=== PATIENT | male | born 1935 | race Caucasian/White ===

== ENCOUNTER 2018-07-12 06:45 | Inpatient (IN) | payer OTHER ==
--- NOTE | 2018-07-12 07:20 | PDOC ---
History of Present Illness - General Chief Complaint: Chest Pain Stated Complaint: CHEST PAIN Time Seen by Provider: 07/12/18 07:03 History Source: Patient, Spouse Exam Limitations: Language Barrier - History of Present Illness Initial Comments: 07/12/18 07:33 *Bengali speaking Pt is a n 83yo M with PMH of CAD s/p Bypass, AICD, HTN, BPH presenting to ED with complaints of dry cough x4 days. Pt states that he has been coughing so much that he started to have pain in his lower chest. He denies fever, chills, productive cough, recent travel, leg swelling, sick contacts. He also endorses exertional chest pain that radiates to the shoulders bilaterally and dyspnea on exertion which is alleviated with rest. He denies syncope, palpitations, abdominal pain, n/v/d, urinary symptoms, back pain, neck pain, headache. He states that a few of his medications have been discontinued. He follows up with [facility] and states his last appointment with cardiology was 01/2018 but he was unable to get an echo. Last stress test was over 2 years ago. PMD: Brittany Cards: Phyllis PMH: see hpi PSH: see hpi Meds: see med rec Allergies: nkda Past History - Past Medical History Allergies/Adverse Reactions: Allergies Allergy/AdvReac Type Severity Reaction Status Date / Time No Known Allergies Allergy Verified 07/12/18 07:48 Home Medications: Ambulatory Orders Amlodipine Besylate [Norvasc -] 10 mg PO DAILY 07/12/18 Aspirin 81 mg PO DAILY 07/12/18 Carvedilol Phosphate [Coreg Cr -] 10 mg PO DAILY 07/12/18 Losartan Potassium 100 mg PO DAILY 07/12/18 - Suicide/Smoking/Psychosocial Hx Smoking History: Never smoked Have you smoked in the past 12 months: No Information on smoking cessation initiated: No Hx Alcohol Use: No Drug/Substance Use Hx: No Review of Systems - Review of Systems Constitutional: No: Chills, Fever, Weakness HEENTM: No: Symptoms Reported Respiratory: Yes: See HPI, Cough, SOB with Exertion Cardiac (ROS): Yes: See HPI, Chest Pain. No: Lightheadedness, Palpitations, Syncope, Chest Tightness ABD/GI: No: Constipated, Diarrhea, Nausea, Vomiting, Abdominal cramping : No: Burning, Dysuria Musculoskeletal: No: Back Pain, Joint Pain, Neck Pain Integumentary: No: Symptoms Reported Neurological: No: Headache, Numbness, Tingling *Physical Exam - Vital Signs Last Vital Signs Temp Pulse Resp BP Pulse Ox 97.6 F 88 16 167/98 96 07/12/18 06:55 07/12/18 06:55 07/12/18 06:55 07/12/18 06:55 07/12/18 06:55 - Physical Exam General Appearance: Yes: Nourished, Appropriately Dressed. No: Apparent Distress HEENT: positive: EOMI, JAIDEN, Normal ENT Inspection Neck: positive: Trachea midline, Supple. negative: Lymphadenopathy (R), Lymphadenopathy (L) Respiratory/Chest: positive: Lungs Clear, Normal Breath Sounds, Other (healed surgical incision scar) Cardiovascular: positive: Regular Rhythm, Regular Rate, S1, S2. negative: Edema , JVD, Murmur Vascular Pulses: Carotid (R): 2+, Carotid (L): 2+, Dorsalis-Pedis (R): 2+, Doralis-Pedis (L): 2+ Gastrointestinal/Abdominal: positive: Normal Bowel Sounds, Soft. negative: Tender Musculoskeletal: negative: CVA Tenderness Extremity: positive: Normal Capillary Refill. negative: Pedal Edema, Swelling, Calf Tenderness Integumentary: positive: Normal Color, Dry, Warm Neurologic: positive: separator inserter II-XII NML intact, Fully Oriented, Alert, Normal Mood/ Affect, Normal Response, Motor Strength 5/5 ED Treatment Course - LABORATORY CBC & Chemistry Diagram: 07/12/18 07:35 07/12/18 07:35 Medical Decision Making - Medical Decision Making 07/12/18 09:21 Pt is a n 83yo M with PMH of CAD s/p Bypass, AICD, HTN, BPH presenting to ED with complaints of dry cough x4 days. Pt states that he has been coughing so much that he started to have pain in his lower chest. He denies fever, chills, productive cough, recent travel, leg swelling, sick contacts. He also endorses exertional chest pain that radiates to the shoulders bilaterally and dyspnea on exertion which is alleviated with rest. He denies syncope, palpitations, abdominal pain, n/v/d, urinary symptoms, back pain, neck pain, headache. He states that a few of his medications have been discontinued. He follows up with [facility] and states his last appointment with cardiology was 01/2018 but he was unable to get an echo. Last stress test was over 2 years ago. Vitals: wnl PE: benign Ddx includes but not limited to ACS, PNA, CHF, dissection, PE, effusion, medication interaction, metabolic/electrolyte disturbance cough likely viral. -labs, trop, cardiac profile -ekg, cxr CXR: no acute pathology, no infiltrates or consolidations EKG- paced rhythm. labs wnl, trop 0.05. Called inorganic chemistry teacher and spoke to inorganic chemistry teacher economics teacher. Recommended to do whatever is medically necessary. Pt has not had stress test, echo or other cardiac testing for a while and has been having sob and chest pain with exertion. will admit tele/obs. Endorsed to hospitalist *DC/Admit/Observation/Transfer Diagnosis at time of Disposition: Cough, Exertional chest pain, Dyspnea on exertion - Discharge Dispostion Decision to Admit order: Yes - Referrals - Patient Instructions - Post Discharge Activity
--- NOTE | 2018-07-12 07:21 | PDOC ---
Attending Attestation - Resident Resident Name: LexySaBrianna - ED Attending Attestation I have performed the following: I have examined & evaluated the patient, The case was reviewed & discussed with the resident, I agree w/resident's findings & plan, Exceptions are as noted - HPI HPI: 07/12/18 08:17 Pt is a n 83yo M with PMH of CAD s/p Bypass, AICD, HTN, BPH presenting to ED with complaints of dry cough x4 days with associated shortness of breath and chest pain/rib pain after coughing chest pain with radiation to the shoulders with exertion Last stress test 2 years ago Denies back pain, resting chest pain - Physicial Exam PE: 07/12/18 08:17 GENERAL: The patient is in no acute distress. ENT: Ears normal, nares patent, oropharynx clear without exudates. Moist mucous membranes. NECK: Normal range of motion, supple LUNGS: Breath sounds equal, clear to auscultation bilaterally. No wheezes, and no crackles. HEART:Regular rate and rhythm, normal S1 and S2 without murmur, rub or gallop. ABDOMEN: Soft, nontender, normoactive bowel sounds. EXTREMITIES: Normal range of motion, no edema. NEUROLOGICAL: Cranial nerves II through XII grossly intact. Normal speech. No focal neurological deficits. SKIN: Warm, Dry, normal turgor, no rashes or lesions noted. - Medical Decision Making 07/12/18 08:34 Laboratory Tests 07/12/18 07/12/18 07/12/18 07:35 07:35 07:35 WBC 9.0 Hgb 12.0 Hct 36.3 Plt Count 180 BUN 13 Creatinine 0.8 Troponin I 0.05 EKG - V paced at 72 bpm CXR - congestive changes Pt chest pain likely related to cough however given his past medical history, report of chest pain with radiating to the shoulders, HEART score is elevated would place on observation 07/12/18 08:40
[2018-07-12 08:03] LABS: BASO % 0.5 % (0-2.0); EOS % 4.4 % (0-4.5); HEMATOCRIT 36.3 % (35.4-49); LYMPH % 17.7 % (8-40); MCH 30.2 pg (25.7-33.7); MCHC 33.2 g/dl (32.0-35.9); MEAN PLT VOLUME 10.7 fl (7.5-11.1); MONO % 11.7 % (3.8-10.2); NEUT % 65.7 % (42.8-82.8); PLATELET COUNT 180 K/MM3 (134-434); RBC 3.99 M/mm3 (4.00-5.60)
[2018-07-12 08:22] LABS: ALBUMIN 3.3 g/dl (3.4-5.0); ALK PHOS 70 U/L (45-117); ANION GAP 7 MMOL/L (8-16); BILIRUBIN,TOTAL 0.9 mg/dL (0.2-1); BLOOD UREA NITROGEN 13 mg/dL (7-18); CALCIUM 8.4 mg/dL (8.5-10.1); CHLORIDE 110 mmol/L (98-107); CO2 25 mmol/L (21-32); CREATININE 0.8 mg/dL (0.55-1.3); GLUCOSE,RANDOM 104 mg/dL (74-106); MAGNESIUM 1.9 mg/dL (1.8-2.4); POTASSIUM 3.9 mmol/L (3.5-5.1); SGOT/AST 21 U/L (15-37); SGPT/ALT 28 U/L (13-61); SODIUM 143 mmol/L (136-145); TOT PROT 6.4 g/dl (6.4-8.2)
--- NOTE | 2018-07-12 11:07 | HP ---
CHIEF COMPLAINT: " Cough, chest pain" PCP: Dr. [facility] [employer] Dean: Dr. Martínez HISTORY OF PRESENT ILLNESS: "[facility] [id number]" Patient is an 83 year old Chinese speaking male brought in by 911 for evaluation of cough and chest pain. As per the patient, he started having productive cough since 4 days, producing brownish sputum, no blood, took OTC cough syrup that didn't help. Cough got worse, causing pain in the chest, back and bilateral flank pain, also got dizzy and had a near fall so called 911 and brought in to the ED for further evaluation. Describes chest pain as dull aching, located in the right side, aggravated on coughing, radiating towards his shoulder and bilateral flank, associated with palpitations. Denies fever, chills, rigors, sweating, no sick contacts. Also reports to have shortness of breath on exertion since 2 yrs, and starts getting chest discomfort that radiates towards his shoulders, can walk only 2 blocks. Saw his validation manager on 01/2018 who suggested to do an ECHO but he missed the appointment for an ECHO. AICD interrogated in 2017 as per the patient. Saw PCP in 02/2018 and recommended the same. No orthopnea or PND. Denies headache, blurring of vision, syncope, seizures or any focal neurological deficits. Complaints of nocturia since years but denies dysuria, urinary incontinence or fecal incontinence. Bowel habit normal. Sleep/Appetite normal. Patient reports he developed a rash for which he went to [facility], was referred to a category development analyst, rash was not associated with food or medications as per the patient. ER course was notable for: (1) Afebrile, hemodynamically stable, Trop 0.05 (2) EK bpm, paced rhythm (3) No meds given Recent Travel: None PAST MEDICAL HISTORY: CAD s/p CABG in 2000, AICD palced 2011, changed in 2016; HTN, HLD, BPH, Prostate Cancer dx in 2013 s/p surgery PAST SURGICAL HISTORY: As mentioned above Social History: Lives with his and walks independently. Smoking: Never smoked Alcohol: Doesn't drink alcohol Drugs: No illicit drug use Family History: Non contributory Allergies No Known Allergies Allergy (Verified 07/12/18 07:48) HOME MEDICATIONS: Home Medications Medication Instructions Recorded Amlodipine Besylate [Norvasc -] 10 mg PO DAILY 07/12/18 Aspirin 81 mg PO DAILY 07/12/18 Carvedilol Phosphate [Coreg Cr -] 10 mg PO DAILY 07/12/18 Losartan Potassium 100 mg PO DAILY 07/12/18 REVIEW OF SYSTEMS CONSTITUTIONAL: Absent: fever, chills, diaphoresis, generalized weakness, malaise, loss of appetite, weight change HEENT: Absent: rhinorrhea, nasal congestion, throat pain, throat swelling, difficulty swallowing, mouth swelling, ear pain, eye pain, visual changes CARDIOVASCULAR: Present: chest pain, palpitations, Absent: irregular heart rate, lightheadedness, peripheral edema RESPIRATORY: Present: cough, shortness of breath, dyspnea with exertion, Absent: orthopnea, wheezing, stridor, hemoptysis GASTROINTESTINAL: Absent: abdominal pain, abdominal distension, nausea, vomiting, diarrhea, constipation, melena, hematochezia GENITOURINARY: Absent: dysuria, frequency, urgency, hesitancy, hematuria, flank pain, genital pain MUSCULOSKELETAL: Absent: myalgia, arthralgia, joint swelling, back pain, neck pain SKIN: Absent: rash, itching, pallor HEMATOLOGIC/IMMUNOLOGIC: Absent: easy bleeding, easy bruising, lymphadenopathy, frequent infections ENDOCRINE: Absent: unexplained weight gain, unexplained weight loss, heat intolerance, cold intolerance NEUROLOGIC: Absent: headache, focal weakness or paresthesias, dizziness, unsteady gait, seizure, mental status changes, bladder or bowel incontinence PSYCHIATRIC: Absent: anxiety, depression, suicidal or homicidal ideation, hallucinations. PHYSICAL EXAMINATION Vital Signs - 24 hr 07/12/18 07/12/18 07/12/18 06:55 07:32 07:41 Temperature 97.6 F Pulse Rate 88 Pulse Rate [ 76 Left Radial] Respiratory 16 20 Rate Blood Pressure 167/98 Blood Pressure 145/99 [Right Arm] O2 Sat by Pulse 96 94 L 98 Oximetry (%) 07/12/18 08:22 Temperature Pulse Rate Pulse Rate [ Left Radial] Respiratory Rate Blood Pressure Blood Pressure [Right Arm] O2 Sat by Pulse 98 Oximetry (%) GENERAL: Elderly male, sitting comfortably in bed, Awake, alert, and fully oriented, in no acute distress. EYES: EOM intact, no pallor or icterus. EARS, NOSE, THROAT: Ears normal. Moist mucous membranes. NECK: Supple, no JVD, no carotid bruit LUNGS: B/L lungs clear, no added sounds. HEART: Regular rate and rhythm, normal S1 and S2 without murmur. ABDOMEN: Soft, nontender, no organomegaly, BS + MUSCULOSKELETAL: No CVA tenderness. UPPER EXTREMITIES: No peripheral edema. LOWER EXTREMITIES: No peripheral edema. NEUROLOGICAL: No facial droop, power 5/5 in all extremities, Cranial nerves II- XII intact. Normal speech. Gait not observed. PSYCHIATRIC: Cooperative. Good eye contact. SKIN: No rashes or lesions. Laboratory Results - last 24 hr 07/12/18 07/12/18 07/12/18 07:35 07:35 07:35 WBC 9.0 RBC 3.99 L Hgb 12.0 Hct 36.3 MCV 91.0 MCH 30.2 MCHC 33.2 RDW 15.0 Plt Count 180 MPV 10.7 Absolute Neuts (auto) 5.9 Neutrophils % 65.7 Lymphocytes % 17.7 Monocytes % 11.7 H Eosinophils % 4.4 Basophils % 0.5 Nucleated RBC % 0 Sodium 143 Potassium 3.9 Chloride 110 H Carbon Dioxide 25 Anion Gap 7 L BUN 13 Creatinine 0.8 Creat Clearance w eGFR 92.55 Random Glucose 104 Calcium 8.4 L Magnesium 1.9 Total Bilirubin 0.9 AST 21 ALT 28 Alkaline Phosphatase 70 Creatine Kinase 291 Creatine Kinase Index 0.6 CK-MB (CK-2) 1.8 Troponin I 0.05 Total Protein 6.4 Albumin 3.3 L 07/12/18 07:35 WBC RBC Hgb Hct MCV MCH MCHC RDW Plt Count MPV Absolute Neuts (auto) Neutrophils % Lymphocytes % Monocytes % Eosinophils % Basophils % Nucleated RBC % Sodium Potassium Chloride Carbon Dioxide Anion Gap BUN Creatinine Creat Clearance w eGFR Random Glucose Calcium Magnesium Total Bilirubin AST ALT Alkaline Phosphatase Creatine Kinase Creatine Kinase Index CK-MB (CK-2) Cancelled Troponin I Total Protein Albumin ASSESSMENT/PLAN: Patient is an 83 year old Chinese speaking male with significant past medical history of brought in by 911 for evaluation of cough and chest pain. # Cough Likely from upper respiratory tract infection and congestion CXR shows congestion Pt is afebrile, no leukocytosis, lungs clear, will monitor off antibiotics. Will add BNP in afternoon lab, if it is high, trial of lasix. # Chest pain Likely from coughing Tylenol PRN # Chest pain with exertional shortness of breath--R/O ACS has SOB since 2 yrs with chest pain. Last stress test > 2 yrs ago (test results unknown, will try to obtain results from [facility]) Trop 0.05---> next on at 1:35 pm Given his extensive cardiac history, needs stress test, can be done as outpatient. Needs an ECHO # CAD s/p CABG Continue Aspirin 81 mg # Palpitations AICD placed 2011 and changed in 2016 Unknown why it was placed. Try to get records from [facility] May need interrogation # Hypertension-controlled Continue Amlodipine 10 mg , Carvedilol 10 mg, Losartan 100 mg # FEN Not on IV fluids, can tolerate PO Electrolytes WNL Sodium controlled diet # Prophylaxis For DVT: On Lovenox 40 mg sq daily For GI: Not indicated # Code Status: Full Code # Dispo: Admitted in Tele/obs Illness, Investigation and Plan of care explained to the patient. He verbalized understanding. Case discussed with Dr. Gaona. Visit type - Emergency Visit Emergency Visit: Yes ED Registration Date: 07/12/18 Care time: The patient presented to the Emergency Department on the above date and was hospitalized for further evaluation of their emergent condition. - New Patient This patient is new to me today: Yes Date on this admission: 07/12/18 - Critical Care Critical Care patient: No
[2018-07-12 12:00] LABS: EPI CELLS 0.3 /HPF (0-5/HPF); PH,URINE 7.5 (5.0-8.0); URINE APPEARANCE CLEAR; URINE BILIRUBIN NEGATIVE (NEGATIVE); URINE CASTS 0 /lpf (0-8); URINE COLOR YELLOW; URINE GLUCOSE (UA) NEGATIVE (NEGATIVE); URINE KETONE NEGATIVE (NEGATIVE); URINE LEUK ESTERASE NEGATIVE (NEGATIVE); URINE NITRITE NEGATIVE (NEGATIVE); URINE PROTEIN TRACE (NEGATIVE); URINE RBC 7 /hpf (0-4); URINE WBC 0 /hpf (0-5)
--- NOTE | 2018-07-12 12:40 | PN ---
Teaching Attending Note Name of Resident: Radha Soriano ATTENDING PHYSICIAN STATEMENT I saw and evaluated the patient. I reviewed the resident's note and discussed the case with the resident. I agree with the resident's findings and plan as documented. SUBJECTIVE: CC: cough and CP HPI: 83 y/o man with h/o HTN, CAD s/p CABG, 2000, s/p ICD placement 2011, changed in 2016, BPH, who presented with cough and CP x 5 days . he [place] , until he started a dry cough 5 days ago. accompanied with Cp when he coughs. pain is R sided and L sided , only with cough. he denies SOB. he denies fever . has sore throat. no sick contact or travel. foes not smoke. he reports a pressure like exeprtional cp x 2 years , for which he saw his air tool operator in January and echo was recommended but he missed his echo apt. last stress test in [facility] 2 yrs ago. His PCP discontinued a lot of his meds a while ago. no details provided . he has ICD, he thinks because of bradycardia, but denies any h/o heart failure ( not the best historian ) he reports palpitations x 2 years OBJECTIVE: NAD , AAOx3 HEENT: nl oropharynx. MMM, no JVD, no facial droop. CV: RRR, 3/6 SM at base , LLSB and [place] with radiation to L axilla . No JVD, no hepatojugular reflux Lungs: CTAB Ext: no edema no erythema. Abd: soft, NT, ND , nL BS , no hepatojugular reflux Neuro: no facial droop, EOMI, round equal pupils, reactive to light. strength 5/ 5 in upper and lower extremities proximally and distally. sensation to light touch nl. reflexes 2+ knee jerk and bicecps b/l. MS: TTP over L sided chest wall ASSESSMENT AND PLAN: 83 y/o man with h/o HTN, CAD s/p CABG, 2000, s/p ICD placement 2011, changed in 2016, BPH, who presented with cough and CP x 5 days. 1- Cough: with no SOB , no sputum production, and no clinical signs of PNA. likely viral in etiology, No need for Abx as it has been only 5 days. cxray shows some congestion but the patient seems to be euvolemic ( no JVD, crackles , LE edema or hepatojugular reflux ) - will get BNP . xray changes might be chronic - hold off any diuresis for now. if BNP is elevated, might try a dose of lasix and monitor response - check flu swab 2- CP: pain that is associated with cough is likely muscle strain . reproducible. x 5 days . paced EKG. nl trop - follow trop . - the exertional CP x 2 years. might be anginal. No records available regarding his stress test or previous echos. his card was aware of it in . will need to follow with his air tool operator and might need out pt stress test. - will try to obtain his last stress from [facility] 3- Palpitations: will get ICD interrogation 4- HTN: cont home meds 5- DVT PX
--- NOTE | 2018-07-12 14:08 | EKG ---
Test Reason : Blood Pressure : / mmHG Vent. Rate : 072 BPM Atrial Rate : 072 BPM P-R Int : 202 ms QRS Dur : 186 ms QT Int : 486 ms P-R-T Axes : 038 -62 106 degrees QTc Int : 532 ms Atrial-sensed ventricular-paced rhythm ABNORMAL ECG Confirmed by MD FRANCINE, RITA ([id number]) on 07/12/2018 2:07:51 PM Referred By: Confirmed By:RTIA ESCAMILLA MD
[2018-07-12 15:13] VITALS: BMI 26.3
[2018-07-12] MEDS ORDERED: ALBUTEROL SO4 0.083% IH SOL 2.5 MG/3 ML VIAL.NEB. NEB PRN (15:20)
[2018-07-12 15:50] LABS: N-TERMINAL BNP 3141.8 pg/ml (5-450)
[2018-07-12] MEDS ORDERED: guaiFENesin 200 MG/10 ML 10 ML UNIT-DOSE CUPS PO ONE (23:00)
[2018-07-13 07:37] LABS: BASO % 0.7 % (0-2.0); EOS % 3.8 % (0-4.5); HEMATOCRIT 36.6 % (35.4-49); HEMOGLOBIN 12.3 GM/dL (11.7-16.9); LYMPH % 18.5 % (8-40); MCH 30.8 pg (25.7-33.7); MCHC 33.6 g/dl (32.0-35.9); MEAN CELL VOLUME 91.5 fl (80-96); MONO % 11.8 % (3.8-10.2); NEUT % 65.2 % (42.8-82.8); PLATELET COUNT 189 K/MM3 (134-434); WHITE BLOOD COUNT 9.5 K/mm3 (4.0-10.0)
[2018-07-13 08:35] LABS: ALBUMIN 3.3 g/dl (3.4-5.0); ALK PHOS 70 U/L (45-117); ANION GAP 9 MMOL/L (8-16); BLOOD UREA NITROGEN 15 mg/dL (7-18); CALCIUM 8.1 mg/dL (8.5-10.1); CHLORIDE 109 mmol/L (98-107); CHOLESTEROL 179 mg/dL (50-200); CO2 25 mmol/L (21-32); CREATININE 0.9 mg/dL (0.55-1.3); GLUCOSE,RANDOM 98 mg/dL (74-106); HDL CHOLESTEROL 50 mg/dL (40-60); MAGNESIUM 2.1 mg/dL (1.8-2.4); PHOSPHOROUS 3.7 mg/dL (2.5-4.9); SGOT/AST 20 U/L (15-37); SGPT/ALT 26 U/L (13-61); SODIUM 143 mmol/L (136-145); TOT PROT 6.4 g/dl (6.4-8.2); TRIGLYCERIDES 78 mg/dL (0-150)
[2018-07-13] MEDS: amLODIPine BESYLATE 10 MG TABLET (FP) PO SCH (09:58)
[2018-07-13] MEDS: ENOXAPARIN NA (PORCINE) 40 MG/0.4 ML DISP.SYRIN SQ SCH (09:58)
[2018-07-13] MEDS: ASPIRIN 81 MG CHEWABLE TABLETS PO SCH (09:58)
[2018-07-13] MEDS: CARVEDILOL PHOSPHATE CR 10 MG CAPSULE PO SCH (09:58)
[2018-07-13] MEDS: LOSARTAN POTASSIUM 50 MG TABLET (FP) PO SCH (09:58)
[2018-07-13] MEDS: guaiFENesin 200 MG/10 ML 10 ML UNIT-DOSE CUPS PO PRN (10:47)
--- NOTE | 2018-07-13 15:51 | PN ---
Physical Exam: SUBJECTIVE: Patient seen and examined. He complains of a persistent cough and denies chest pain. OBJECTIVE: Vital Signs Period Temp Pulse Resp BP Sys/Loza Pulse Ox Last 24 Hr 97.5 F-99.4 F 73-79 18-20 115-148/62-77 99-99 GENERAL: The patient is awake, alert, and fully oriented, in no acute distress. LUNGS: Breath sounds equal, clear to auscultation bilaterally, no wheezes, no crackles, no accessory muscle use. HEART: Regular rate and rhythm, S1, S2, (+) 2/6 SM. ABDOMEN: Soft, nontender, nondistended, normoactive bowel sounds, no guarding, no rebound, no hepatosplenomegaly, no masses. EXTREMITIES: 2+ pulses, warm, well-perfused, no edema. Laboratory Results - last 24 hr 07/12/18 07/13/18 07/13/18 15:13 05:00 05:00 WBC 9.5 RBC 4.00 Hgb 12.3 Hct 36.6 MCV 91.5 MCH 30.8 MCHC 33.6 RDW 15.0 Plt Count 189 MPV 11.0 Absolute Neuts (auto) 6.2 Neutrophils % 65.2 Lymphocytes % 18.5 Monocytes % 11.8 H Eosinophils % 3.8 Basophils % 0.7 Nucleated RBC % 0 Sodium Potassium Chloride Carbon Dioxide Anion Gap BUN Creatinine Creat Clearance w eGFR Random Glucose Hemoglobin A1c % 6.1 Calcium Phosphorus Magnesium Total Bilirubin AST ALT Alkaline Phosphatase Creatine Kinase 278 Creatine Kinase Index 0.6 CK-MB (CK-2) 1.8 Troponin I 0.05 B-Natriuretic Peptide 3141.8 H Total Protein Albumin Triglycerides Cholesterol Total LDL Cholesterol HDL Cholesterol TSH 07/13/18 05:30 WBC RBC Hgb Hct MCV MCH MCHC RDW Plt Count MPV Absolute Neuts (auto) Neutrophils % Lymphocytes % Monocytes % Eosinophils % Basophils % Nucleated RBC % Sodium 143 Potassium 4.0 Chloride 109 H Carbon Dioxide 25 Anion Gap 9 BUN 15 Creatinine 0.9 Creat Clearance w eGFR 80.79 Random Glucose 98 Hemoglobin A1c % Calcium 8.1 L Phosphorus 3.7 Magnesium 2.1 Total Bilirubin 1.0 AST 20 ALT 26 Alkaline Phosphatase 70 Creatine Kinase Creatine Kinase Index CK-MB (CK-2) Troponin I B-Natriuretic Peptide Total Protein 6.4 Albumin 3.3 L Triglycerides 78 Cholesterol 179 Total LDL Cholesterol 117 H HDL Cholesterol 50 TSH 1.15 Active Medications Generic Name Dose Route Start Last Admin Trade Name Freq PRN Reason Stop Dose Admin Albuterol Sulfate 1 amp 07/12/18 15:20 07/12/18 19:50 Ventolin 0.083% Nebulizer Soln - NEB 1 amp Q4H PRN Administration SHORT OF BREATH/WHEEZING Amlodipine Besylate 10 mg 07/13/18 10:00 07/13/18 09:58 Norvasc - PO 10 mg DAILY VAUGHN Administration Aspirin 81 mg 07/13/18 10:00 07/13/18 09:58 Asa - PO 81 mg DAILY VAUGHN Administration Carvedilol 10 mg 07/13/18 10:00 07/13/18 09:58 Coreg Cr - PO 10 mg DAILY VAUGHN Administration Enoxaparin Sodium 40 mg 07/13/18 10:00 07/13/18 09:58 Lovenox - SQ 40 mg DAILY VAUGHN Administration Guaifenesin 10 ml 07/13/18 10:21 07/13/18 10:47 Robitussin - PO 10 ml Q4H PRN Administration COUGH Losartan Potassium 100 mg 07/13/18 10:00 07/13/18 09:58 Cozaar - PO 100 mg DAILY VAUGHN Administration ASSESSMENT/PLAN: This is an 83 year old man with a history of HTN, CAD, CABG, ICD, BPH who presented to the ED with cough and chest pain. 1. Cough with musculoskeletal chest pain - CXR showed congestive changes and BNP elevated at 3141.8 - Will give Lasix IV x1 and see if patient improves - Check echo 2. Palpitations - Plan for interrogation of ICD 3. HTN - Continue Cozaar, Coreg, Norvasc 4. CAD, history of CABG - Continue aspirin, Coreg 5. History of ICD 6. BPH 7. DVT prophylaxis - On Lovenox subq Visit type - Emergency Visit Emergency Visit: Yes ED Registration Date: 07/12/18 Care time: The patient presented to the Emergency Department on the above date and was hospitalized for further evaluation of their emergent condition. - New Patient This patient is new to me today: Yes Date on this admission: 07/13/18 - Critical Care Critical Care patient: No - Discharge Referral Referred to [facility] Med P.C.: No
[2018-07-13] MEDS ORDERED: FUROSEMIDE 40 MG/4 ML INJECTABLE VIAL IVPUSH ONE (15:54)
[2018-07-14] MEDS: guaiFENesin 200 MG/10 ML 10 ML UNIT-DOSE CUPS PO PRN ×2 (06:35→10:06)
[2018-07-14] MEDS: LOSARTAN POTASSIUM 50 MG TABLET (FP) PO SCH (10:05)
[2018-07-14] MEDS: ENOXAPARIN NA (PORCINE) 40 MG/0.4 ML DISP.SYRIN SQ SCH (10:06)
[2018-07-14] MEDS: ASPIRIN 81 MG CHEWABLE TABLETS PO SCH (10:06)
[2018-07-14] MEDS: amLODIPine BESYLATE 10 MG TABLET (FP) PO SCH (10:06)
--- NOTE | 2018-07-14 11:22 | PN ---
Teaching Attending Note ATTENDING PHYSICIAN STATEMENT I saw and evaluated the patient. I reviewed the resident's note and discussed the case with the resident. I agree with the resident's findings and plan as documented. SUBJECTIVE: OBJECTIVE: ASSESSMENT AND PLAN:
--- NOTE | 2018-07-14 11:28 | PN ---
Teaching Attending Note Name of Resident: Paula Vargas ATTENDING PHYSICIAN STATEMENT I saw and evaluated the patient. I reviewed the resident's note and discussed the case with the resident. I agree with the resident's findings and plan as documented. SUBJECTIVE: cont to have non productive cough. No CP or SOB . no fever or chills. OBJECTIVE: NAD , AAOx3 CV: RRR, 3/6 SM at base , LLSB and [place] with radiation to L axilla . No JVD Lungs: CTAB Ext: no edema no erythema. ASSESSMENT AND PLAN: 83 y/o man with h/o HTN, CAD s/p CABG, 2000, s/p ICD placement 2011, changed in 2017, BPH, who presented with cough and CP x 5 days. 1- Cough: cxray reviewed this ma , and congestive changes have resolved after lasix. possible diagnosis of acute heart failure. - will wait for echo results - will probably need chronic low dose lasix after dc with close follow up with his supervisory air intercept controller . will give 20 mg of po lasix today. 2- CP: cough associated CP has resolved. - will need out pt stress test. close f/u with his supervisory air intercept controller for the chronic exertional cp. last stress was 2 years ago - will try to obtain his last stress if possible 3- Palpitations: will get ICD interrogation today 4- HTN: cont home meds. 5- DVT PX dispo : pending echo and ICD interrogation. hopefully today
[2018-07-14] MEDS ORDERED: FUROSEMIDE 20 MG TABLET (FP) PO ONE (11:37)
--- NOTE | 2018-07-14 12:30 | ECHO ---
Name: FARNCK, CROATIAN Exam:Adult Echocardiogram Study Date: 07/14/2018 08:38 AM Age: 83 yrs Reason For Study: sob,evaluate LV fn Height: 65 in Weight: 158 lb BSA: 1.8 m2 MMode/2D Measurements & Calculations IVSd: 0.95 cm Ao root diam: 3.4 cm LVIDd: 6.5 cm LA dimension: 4.0 cm LVIDs: 4.8 cm ACS: 1.2 cm LVPWd: 1.1 cm IVSs: 1.1 cm LVPWs: 1.4 cm EDV(Teich): 218.2 ml ESV(Teich): 108.7 ml EPSS: 1.5 cm LVOT diam: 2.3 cm Doppler Measurements & Calculations MV E max jorge: 55.0 cm/sec Ao V2 max: 249.8 cm/sec MV A max jorge: 101.9 cm/sec Ao max P.0 mmHg MV E/A: 0.54 Ao V2 mean: 180.0 cm/sec Ao mean P.7 mmHg Ao V2 VTI: 52.0 cm SHAYNA(I,D): 1.5 cm2 SHAYNA(V,D): 1.5 cm2 LV V1 max P.2 mmHg MR max jorge: 349.7 cm/sec LV V1 mean P.7 mmHg MR max P.0 mmHg LV V1 max: 89.2 cm/sec LV V1 mean: 61.0 cm/sec LV V1 VTI: 17.7 cm SV(LVOT): 76.3 ml PI end-d jorge: 100.4 cm/sec Med Peak E' Jorge: 3.7 cm/sec Med E/e': 14.8 Lat Peak E' Jorge: 5.7 cm/sec Lat E/e': 9.7 Procedure The study was technically adequate with some images being suboptimal in quality. Left Ventricle The left ventricle is severely dilated. Left ventricular systolic function is severely reduced. Eject ion Fraction = 15-20%. Grade I diastolic dysfunction, (abnormal relaxation pattern). Left Ventricular Thor ling pattern is normal for age. Apical wall motion abnormality may reflect pacemaker activation. Septal mo tion is consistent with post-operative state. Right Ventricle The right ventricle is mildly dilated. There is a pacemaker lead in the right ventricle. The right ve ntricular systolic function is mildly reduced. Atria The left atrium is mildly dilated. The right atrium is mildly dilated. Mitral Valve There is mild mitral valve thickening. There is mild mitral annular calcification. There is mild to m oderate mitral regurgitation. Tricuspid Valve The tricuspid valve is not well visualized, but is grossly normal. There is Trace to mild tricuspid regurgitation. There was insufficient TR detected to calculate RV systolic pressure. Aortic Valve There is moderate aortic sclerosis.;. No aortic regurgitation is present. Pulmonic Valve The pulmonic valve is not well visualized. Trace pulmonic valvular regurgitation. Great Vessels The aortic root is normal size. Pericardium/Pleura There is no pericardial effusion. Interpretation Summary There is no comparison study available. There is moderate aortic sclerosis.; The left atrium is mildly dilated. Trace pulmonic valvular regurgitation. The right ventricle is mildly dilated. The right ventricular systolic function is mildly reduced. There is a pacemaker lead in the right ventricle. Apical wall motion abnormality may reflect pacemaker activation. Grade I diastolic dysfunction, (abnormal relaxation pattern). The right atrium is mildly dilated. Septal motion is consistent with post-operative state. Left ventricular systolic function is severely reduced. Ejection Fraction = 15-20%. Adam Grier MD 07/14/2018 12:30 PM
[2018-07-14] MEDS: CARVEDILOL PHOSPHATE CR 10 MG CAPSULE PO SCH (14:07)
--- NOTE | 2018-07-14 14:28 | CON.CARD ---
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 He denies SOB, orthopnea, near or true syncope, palpitations, PND or LE edema. Sees Dr. Ferguson at [facility] cadiology clinic most recently 01/27/2018, cough improved with diuresis. - History Source History Provided By: Patient Limitations to Obtaining History: No Limitations - Past Surgical History Past Surgical History: Yes: CABG, Permanent Pacemaker - Alcohol/Substance Use Hx Alcohol Use: No - Smoking History Smoking history: Never smoked Have you smoked in the past 12 months: No Home Medications - Allergies Allergies/Adverse Reactions: Allergies Allergy/AdvReac Type Severity Reaction Status Date / Time No Known Allergies Allergy Verified 07/12/18 07:48 - Home Medications Home Medications: Ambulatory Orders Amlodipine Besylate [Norvasc -] 10 mg PO DAILY 07/12/18 Aspirin 81 mg PO DAILY 07/12/18 Carvedilol Phosphate [Coreg Cr -] 10 mg PO DAILY 07/12/18 Losartan Potassium 100 mg PO DAILY 07/12/18 Rosuvastatin Calcium [Crestor] 1 tab PO DAILY 07/14/18 Spironolactone 1 tab PO DAILY 07/14/18 Review of Systems - Review of Systems Respiratory: reports: Cough Vital Signs: Vital Signs Temperature 98.1 F 07/14/18 10:00 Pulse Rate 73 07/14/18 10:00 Respiratory Rate 20 07/14/18 10:00 Blood Pressure 134/59 L 07/14/18 10:00 O2 Sat by Pulse Oximetry (%) 99 07/14/18 09:00 Constitutional: Yes: No Distress, Calm, Thin Neck: Yes: Supple Respiratory: Yes: Regular, Rales Gastrointestinal: Yes: Normal Bowel Sounds, Soft Cardiovascular: Yes: Regular Rate and Rhythm JVD: No Carotid Bruit: No Heart Sounds: Yes: S1, S2 Edema: No - Other Data Labs, Other Data: CBC, BMP 07/13/18 05:00 07/13/18 05:30 A sensed v-paced @ 72 Ejection Fraction %: LVEF < 40 % Imaging - Results Chest X-ray: Report Reviewed (Resolved congestion) Problem List - Problems (1) Acute on chronic systolic heart failure Code(s): I50.23 - ACUTE ON CHRONIC SYSTOLIC (CONGESTIVE) HEART FAILURE (2) Coronary artery disease Code(s): I25.10 - ATHSCL HEART DISEASE OF [place] CORONARY ARTERY W/O ANG PCTRS Qualifiers: Coronary Disease-Associated Artery/Lesion type: [place] artery [place] vs. transplanted heart: [place] heart Associated angina: without angina Qualified Code(s): I25.10 - Atherosclerotic heart disease of [place] coronary artery without angina pectoris (3) Ischemic cardiomyopathy Code(s): I25.5 - ISCHEMIC CARDIOMYOPATHY (4) S/P CABG (coronary artery bypass graft) Code(s): Z95.1 - PRESENCE OF AORTOCORONARY BYPASS GRAFT (5) ICD (implantable cardioverter-defibrillator) in place Code(s): Z95.810 - PRESENCE OF AUTOMATIC (IMPLANTABLE) CARDIAC DEFIBRILLATOR (6) Paroxysmal ventricular tachycardia Code(s): I47.2 - VENTRICULAR TACHYCARDIA (7) PVC (premature ventricular contraction) Code(s): I49.3 - VENTRICULAR PREMATURE DEPOLARIZATION (8) Hyperlipidemia Code(s): E78.5 - HYPERLIPIDEMIA, UNSPECIFIED Qualifiers: Hyperlipidemia type: pure hypercholesterolemia Qualified Code(s): E78.00 - Pure hypercholesterolemia, unspecified; E78.0 - Pure hypercholesterolemia (9) Cough Code(s): R05 - COUGH (10) Dyspnea on exertion Code(s): R06.09 - OTHER FORMS OF DYSPNEA Assessment/Plan 04/24/2017 Normal LV size with mild hypertrophy, LVEF 45%, normal RV size and RV fxn 08/13/2017 Normal LV size and mild-mod decreased LVEF 45%, normal RV fxn, severe LAE, tr-mild MR 07/14/2018 Mild dilated RV with mild decrease RV fxn, pacer RV, abnl LV compliance, mild LAE, severely decreased LVEF 15-20% 09/20/2011 Nuc stress: Enlarged LV, hypertrophied, globally HK LVEF 37% 10/08/2011 Cath: Patent KING->mLAD, SVG->RI/OM2, SVG->RPDA with 30-40% proximal graft stenosis 1. Acute on chronic systolic failure improved 2. Palpitations referable to PVC, Paroxysmal ventricular tachycardia s/p ICD ( interrogation confirms no events since 03/2017) 3. CAD s/p CABG 4. Ischemic cardiomyopathy 5. Hypertensive cardiomyopathy P:1. Oral diuresis with monitor diuretic response, response and renal fxn 2. Continue ASA 81 qd, Norvasc 10 qd, Crestor 10 qd, losartan 100 qd, Aldactone 25 qd and Coreg CR 10 qd, consideration for Entresto as outpatient 3. D/c planning with f/u with Dr. Ferguson in [facility] office , further CV eval as outpatient 4. Thank you for consultative opportunity
--- NOTE | 2018-07-14 17:28 | PN ---
Physical Exam: SUBJECTIVE: Patient seen and examined at bedside this morning. Patient still reports productive cough with brownish sputum but has had no episodes of chest pain overnight. Patient is able to walk to the bathroom without getting short of breath. Denies fever, chills, headache, chest pain, SOB, palpitations, abdominal pain, urinary symptoms. Records obtained from petroleum engineering professor (Dr. Ferguson). Please refer to patient's physical chart. OBJECTIVE: Vital Signs Temperature 98.1 F 07/14/18 14:00 Pulse Rate 73 07/14/18 10:00 Respiratory Rate 72 H 07/14/18 14:00 Blood Pressure 134/59 L 07/14/18 10:00 O2 Sat by Pulse Oximetry (%) 99 07/14/18 09:00 GENERAL: The patient is awake, alert, and fully oriented, in no acute distress. HEAD: Normal with no signs of trauma. EYES: PERRLA, EOMI, sclera anicteric, conjunctiva clear. ENT: oropharynx clear without exudates, moist mucous membranes. NECK: Trachea midline, full range of motion, supple. LUNGS: Breath sounds equal, clear to auscultation bilaterally. HEART: Regular rate and rhythm, S1, S2 +systolic murmur at LLSB and LUSB ABDOMEN: Soft, nontender, nondistended, normoactive bowel sounds. EXTREMITIES: 2+ pulses, warm, well-perfused, no edema. NEUROLOGICAL: Cranial nerves II through XII grossly intact. Normal speech. PSYCH: Normal mood, normal affect. SKIN: Warm, dry, normal turgor, no rashes or lesions noted Active Medications Generic Name Dose Route Start Last Admin Trade Name Freq PRN Reason Stop Dose Admin Albuterol Sulfate 1 amp 07/12/18 15:20 07/12/18 19:50 Ventolin 0.083% Nebulizer Soln - NEB 1 amp Q4H PRN Administration SHORT OF BREATH/WHEEZING Amlodipine Besylate 10 mg 07/13/18 10:00 07/14/18 10:06 Norvasc - PO 10 mg DAILY VAUGHN Administration Aspirin 81 mg 07/13/18 10:00 07/14/18 10:06 Asa - PO 81 mg DAILY VAUGHN Administration Carvedilol 10 mg 07/13/18 10:00 07/14/18 14:07 Coreg Cr - PO 10 mg DAILY VAUGHN Administration Enoxaparin Sodium 40 mg 07/13/18 10:00 07/14/18 10:06 Lovenox - SQ 40 mg DAILY VAUGHN Administration Guaifenesin 10 ml 07/13/18 10:21 07/14/18 10:06 Robitussin - PO 10 ml Q4H PRN Administration COUGH Losartan Potassium 100 mg 07/13/18 10:00 07/14/18 10:05 Cozaar - PO 100 mg DAILY VAUGHN Administration ASSESSMENT/PLAN: Patient is an 83 year old Estonian speaking male with significant past medical history of HTN, CAD s/p CABG, cardiomyopathy s/p ICD, BPH, CHF brought in by 911 for evaluation of cough and chest pain. # Acute on Chronic CHF -Trop 0.05 x2 -BNP 3141 -Lasix given 20mg Iv given yesterday, and 20mg PO today -Repeat CXR today showed congestion has resolved -Based on pt's previous records, EF in 2018 was 40% -Echo done today: EF 15-20% There is moderated . LA is mildly dilated. Trace pulmonic valvular regurgitation. RV mildly dilated. RV systolic function mildly reduced. Pacemaker lead in RV. Grade I diastolic dysfunction. RA mildly dilated. LV systolic function is severely reduced. -Cardiology (Dr. Grier) consulted. # Cough -Likely 2/2 acute bronchitis -Will continue to monitor off abx -symptomatic treatment # CAD s/p CABG -Continue Aspirin 81 mg # Palpitations -AICD placed 2011 and changed in 2017 -[employer] called for interrogation # Hypertension-controlled -Continue Amlodipine 10 mg , Carvedilol 10 mg, Losartan 100 mg # FEN -Not on any standing fluids -Electrolytes wnl, routine bmp monitoring -Sodium controlled diet # Prophylaxis -Lovenox 40 mg sq daily # Disposition -Admitted in Tele/obs -full code Visit type - Emergency Visit Emergency Visit: Yes ED Registration Date: 07/14/18 Care time: The patient presented to the Emergency Department on the above date and was hospitalized for further evaluation of their emergent condition. - New Patient This patient is new to me today: Yes Date on this admission: 07/14/18 - Critical Care Critical Care patient: No
[2018-07-14 18:13] VITALS: BP 125/61; PULSE 75; TEMP 98.3
--- NOTE | 2018-07-15 08:22 | DS ---
Physical Exam: SUBJECTIVE: Patient discharged last night. Please see previous notes OBJECTIVE: LABS CBC, BMP 07/13/18 05:00 07/13/18 05:30 -Echo: EF 15-20% There is moderated . LA is mildly dilated. Trace pulmonic valvular regurgitation. RV mildly dilated. RV systolic function mildly reduced. Pacemaker lead in RV. Grade I diastolic dysfunction. RA mildly dilated. LV systolic function is severely reduced. HOSPITAL COURSE: Date of Admission:07/14/18 Date of Discharge: 07/15/18 ASSESSMENT/PLAN: Patient is an 83 year old Macanese speaking male with significant past medical history of HTN, CAD s/p CABG, cardiomyopathy s/p ICD, BPH, CHF, BIBEMS for evaluation of cough and chest pain. CBC and BMP were normal. Troponin and EKG trended. BNP was noted to be 3141. Chest xray was done which showed congestion. Patient received Lasix and repeat cxr showed congestion has resolved. Echo was done and worsening EF was noted based on patient's previous records from his network internship. Cardiology was consulted and recommended close follow up with his network internship as outpatient for a possible stress test. ICD was interrogated by [employer] and showed no events since 03/2017. Patient was discharged with instructions to follow up with PCP and network internship. Minutes to complete discharge: 37 Discharge Summary Reason For Visit: DYSPNEA ON EXERTION;COUGH;CHEST PAIN ON EXERTION Condition: Improved - Instructions Diet, Activity, Other Instructions: Your visit You were admitted to the hospital because you had cough . this is attributed to acute heart failure . You were gien water medicine and to continue lasix in addition to your aldactone at home You were given water pills that would help you excrete this excess fluid to your urine. You will continue taking this medication at home. You will be given a prescription for a repeat blood work in 1 week. Please have your blood work done and bring the results to your physician's office for further care. Medications Please continue your home medications. Follow up Please follow up with your primary care physician (Dr. Soto) within 1 week. Please follow up with your network internship (Dr. Ferguson). You have an appointment on July 17, at 3:40pm. It is important that you follow up with Dr. Ferguson for further care and management. you might need repeat stress test Additional info Call 911 or go to the ED if with any worsening fever, chills, headache, dizziness, cough, chest pain, shortness of breath, belly pain, bloody stools or urine, or any new concerns noted. yo Referrals: Aquilino Soto MD [Primary Care Provider] - 1 Week Aquilino Ferguson MD [Non Staff, Medical] - 1 Week Disposition: HOME - Home Medications Comprehensive Discharge Medication List: Ambulatory Orders Amlodipine Besylate [Norvasc -] 10 mg PO DAILY 07/12/18 Aspirin 81 mg PO DAILY 07/12/18 Carvedilol Phosphate [Coreg Cr -] 10 mg PO DAILY 07/12/18 Losartan Potassium 100 mg PO DAILY 07/12/18 Furosemide [Lasix] 20 mg PO DAILY #30 tablet 07/14/18 Miscellaneous Medical Supply [Outpatient Order] 1 each ASDIR #1 misc Rosuvastatin Calcium [Crestor] 1 tab PO DAILY 07/14/18 Spironolactone 1 tab PO DAILY 07/14/18 This patient is new to me today: Yes Date on this admission: 07/15/18 Emergency Visit: Yes ED Registration Date: 07/14/18 Care time: The patient presented to the Emergency Department on the above date and was hospitalized for further evaluation of their emergent condition. Critical Care patient: No - Discharge Referral Referred to [facility] Med [facility] No
[2018-07-15] MEDS ORDERED: FUROSEMIDE 20 MG TABLET (FP) PO SCH (10:00)
== END 2018-07-14 20:22 | disposition home or self-care (01) | DRG 194 ==
LOC: JER 06:45 → JERBED 09:40 → J4W 14:53 → OBSVTOIN 07-14 12:39
PROVIDERS: ADMIT Internal Medicine; ATTEND Internal Medicine
DX: I11.0 Hypertensive heart disease with heart failure (principal); J20.9 Acute bronchitis, unspecified; I50.23 Acute on chronic systolic (congestive) heart failure; I43 Cardiomyopathy in diseases classified elsewhere; I49.3 Ventricular premature depolarization; I25.10 Atherosclerotic heart disease of native coronary artery without angina pectoris; I10 Essential (primary) hypertension; N40.0 Benign prostatic hyperplasia without lower urinary tract symptoms; R00.2 Palpitations; I25.5 Ischemic cardiomyopathy; R05 Cough; Z95.1 Presence of aortocoronary bypass graft; Z95.810 Presence of automatic (implantable) cardiac defibrillator; Z85.46 Personal history of malignant neoplasm of prostate
CPT/HCPCS: 36415; 71046-TC-FY; 80053; 80061; 81003; 82550; 82553; 83036; 83721; 83735; 83880; 84100; 84443; 84484; 85025; 87804; 93005; 93010; 93306-TC; 94640; 99285-25; G0378

== ENCOUNTER 2021-09-20 10:06 | Emergency (ER) | payer OTHER ==
[2021-09-20 10:11] VITALS: BP 176/95; PULSE 95; TEMP 97.9; BMI 26.6
[2021-09-20] MEDS ORDERED: LIDOCAINE 5% TOPICAL PATCH TP ONE (10:41)
[2021-09-20] MEDS ORDERED: ACETAMINOPHEN 500 MG TABLET (FP) PO ONE (10:41)
[2021-09-20] MEDS ORDERED: ACETAMINOPHEN 500 MG TABLET (FP) ONE (10:46)
[2021-09-20] MEDS ORDERED: LIDOCAINE 5% TOPICAL PATCH ONE (10:46)
== END 2021-09-20 11:53 | disposition home or self-care (01) ==
LOC: JERFT 10:06
DX: M25.561 Pain in right knee (principal)
CPT/HCPCS: 73562-TC-RT-FY; 99283-25

== ENCOUNTER 2022-08-28 09:01 | Emergency (ER) | payer OTHER ==
[2022-08-28 09:09] VITALS: BP 156/72; PULSE 75; RESP 16; TEMP 98.1; BMI 25.7
== END 2022-08-28 10:15 | disposition home or self-care (01) ==
LOC: JERFT 09:01
DX: L25.9 Unspecified contact dermatitis, unspecified cause (principal); R21 Rash and other nonspecific skin eruption
CPT/HCPCS: 99283-25

== ENCOUNTER 2023-07-26 07:10 | Inpatient (IN) | payer OTHER ==
[2023-07-26 09:06] LABS: URINE APPEARANCE CLEAR; URINE BILIRUBIN NEGATIVE (NEGATIVE); URINE COLOR YELLOW; URINE GLUCOSE (UA) NEGATIVE (NEGATIVE); URINE KETONE NEGATIVE (NEGATIVE); URINE LEUK ESTERASE NEGATIVE (NEGATIVE); URINE NITRITE NEGATIVE (NEGATIVE); URINE PROTEIN NEGATIVE (NEGATIVE); URINE UROBILINOGEN 0.2 mg/dL (0.2-1.0)
[2023-07-26 09:12] LABS: INR 0.97 (0.83-1.09)
[2023-07-26 09:15] LABS: ACTIVATED PTT 30.8 SECONDS (25.2-36.5)
[2023-07-26 09:18] LABS: EOS % 4.3 % (0-4.5); HEMATOCRIT 38.6 % (35.4-49); HEMOGLOBIN 13.2 GM/dL (11.7-16.9); MCH 29.7 pg (25.7-33.7); MCHC 34.2 g/dl (32.0-35.9); MEAN CELL VOLUME 86.8 fl (80-96); MEAN PLT VOLUME 9.2 fl (7.5-11.1); MONO % 9.2 % (3.8-10.2); NEUT % 58.5 % (42.8-82.8); PLATELET COUNT 236 10^3/uL (134-434); RBC 4.45 M/mm3 (4.00-5.60); RDW 15.6 % (11.9-15.9); WHITE BLOOD COUNT 6.4 K/mm3 (4.0-10.0)
[2023-07-26 09:43] LABS: CHLORIDE 110 mmol/L (98-107); POTASSIUM 3.9 mmol/L (3.5-5.1); SODIUM 141 mmol/L (136-145)
[2023-07-26 09:45] LABS: ANION GAP 6 mmol/L (4-13); CALCIUM 9.1 mg/dL (8.5-10.1); CO2 25 mmol/L (21-32); GLUCOSE,RANDOM 114 mg/dL (74-106)
[2023-07-26 09:46] LABS: ALBUMIN 3.4 g/dl (3.4-5.0)
[2023-07-26 09:48] LABS: SGPT/ALT 19 U/L (13-61)
[2023-07-26 09:49] LABS: CREATININE 0.9 mg/dL (0.55-1.3); SGOT/AST 22 U/L (15-37)
[2023-07-26 09:50] LABS: BILIRUBIN,TOTAL 0.6 mg/dL (0.2-1); TOT PROT 6.9 g/dl (6.4-8.2)
[2023-07-26 09:51] LABS: ALK PHOS 66 U/L (45-117)
[2023-07-26] MEDS ORDERED: ASPIRIN 81 MG CHEWABLE TABLETS ONE (12:31)
[2023-07-26] MEDS: ASPIRIN 81 MG CHEWABLE TABLETS PO ONE (12:36)
[2023-07-26] MEDS ORDERED: ACETAMINOPHEN INJECTION 100 ML IVPB ONE (14:55)
[2023-07-26] MEDS: ACETAMINOPHEN 1000 MG/100 ML BAG IVPB ONE (15:07)
[2023-07-26 17:21] VITALS: BMI 24.5
[2023-07-26] MEDS: ROSUVASTATIN CA 20 MG TABLET PO SCH (21:42)
[2023-07-27 07:12] LABS: BASO % 0.9 % (0-2.0); EOS % 3.8 % (0-4.5); HEMATOCRIT 39.6 % (35.4-49); HEMOGLOBIN 13.4 GM/dL (11.7-16.9); LYMPH % 26.3 % (8-40); MCH 29.6 pg (25.7-33.7); MCHC 33.8 g/dl (32.0-35.9); MEAN CELL VOLUME 87.5 fl (80-96); MEAN PLT VOLUME 9.5 fl (7.5-11.1); MONO % 8.6 % (3.8-10.2); NEUT % 60.4 % (42.8-82.8); PLATELET COUNT 233 10^3/uL (134-434); RBC 4.52 M/mm3 (4.00-5.60); RDW 15.5 % (11.9-15.9); WHITE BLOOD COUNT 7.4 K/mm3 (4.0-10.0)
[2023-07-27 07:28] LABS: POTASSIUM 3.5 mmol/L (3.5-5.1)
[2023-07-27 07:33] LABS: CALCIUM 8.8 mg/dL (8.5-10.1)
[2023-07-27 07:34] LABS: ALBUMIN 3.2 g/dl (3.4-5.0); BLOOD UREA NITROGEN 18.8 mg/dL (7-18)
[2023-07-27 07:37] LABS: BILIRUBIN,TOTAL 0.9 mg/dL (0.2-1); CREATININE 0.8 mg/dL (0.55-1.3); PHOSPHOROUS 4.2 mg/dL (2.5-4.9)
[2023-07-27 07:38] LABS: TOT PROT 6.5 g/dl (6.4-8.2)
[2023-07-27] MEDS: LOSARTAN POTASSIUM 50 MG TABLET PO SCH (10:39)
[2023-07-27] MEDS: ASPIRIN COATED 81 MG TABLET.EC PO SCH (10:39)
[2023-07-27] MEDS: amLODIPine BESYLATE 10 MG TABLET (FP) PO SCH (10:39)
[2023-07-27] MEDS: CARVEDILOL 6.25 MG TABLET (FP) PO SCH (10:39)
[2023-07-27] MEDS: ENOXAPARIN NA (PORCINE) 40 MG/0.4 ML DISP.SYRIN SQ SCH (10:39)
[2023-07-28] MEDS: ISOSORBIDE MONONITRATE 30 MG TAB.SR.24H (FP) PO SCH (11:34)
[2023-07-29 10:21] VITALS: BP 147/84; PULSE 60; RESP 18; TEMP 98.8
== END 2023-07-29 15:36 | disposition home or self-care (01) | DRG 303 ==
LOC: JER 07:10 → JERBED 12:13 → J4W 16:54
PROVIDERS: ATTEND Internal Medicine
DX: I25.119 Atherosclerotic heart disease of native coronary artery with unspecified angina pectoris (principal); I50.32 Chronic diastolic (congestive) heart failure; K86.2 Cyst of pancreas; I24.89 Other forms of acute ischemic heart disease; M54.12 Radiculopathy, cervical region; M54.89 Other dorsalgia; K86.9 Disease of pancreas, unspecified; I11.0 Hypertensive heart disease with heart failure; E78.5 Hyperlipidemia, unspecified; M25.512 Pain in left shoulder; M25.511 Pain in right shoulder; K57.30 Diverticulosis of large intestine without perforation or abscess without bleeding; N28.1 Cyst of kidney, acquired; N40.0 Benign prostatic hyperplasia without lower urinary tract symptoms; Z85.46 Personal history of malignant neoplasm of prostate; Z95.1 Presence of aortocoronary bypass graft; Z95.0 Presence of cardiac pacemaker
CPT/HCPCS: 0241U-QW; 36415; 71045-TC-FY; 71275-TC; 74174-TC; 76775-TC; 80053; 81003; 82550; 82553; 83735; 84100; 84484; 85025; 85610; 85730; 87086; 87186; 93005; 93010; 93306-TC; 97116-GP; 97161-GP; 99285-25; J0131; Q9967